=== PATIENT | male | born 1960 | race Caucasian/White ===

== ENCOUNTER → 2023-07-03 09:09 | Outpatient (REF) | payer OTHER, SELFPAY | LOC: HWRAD 09:09 | PROVIDERS: ATTENDING PHYSICIAN Physician Assistant | DX: Z87.891 Personal history of nicotine dependence (principal) | CPT/HCPCS: 71271 ==

== ENCOUNTER → 2023-08-10 10:25 | Outpatient (REF) | payer OTHER, SELFPAY ==
[2023-08-10 11:46] LABS: Lithium 0.7 mmol/L (0.6-1.2)
== END ==
LOC: REG 10:25
PROVIDERS: ATTENDING PHYSICIAN Registered Nurse Psychiatric/Mental Health, Adult
DX: Z79.899 Other long term (current) drug therapy (principal)
CPT/HCPCS: 36415; 80178

== ENCOUNTER → 2024-02-15 10:28 | Outpatient (REF) | payer OTHER, SELFPAY ==
[2024-02-15 11:31] LABS: Lithium 0.8 mmol/L (0.6-1.2)
== END ==
LOC: REG 10:28
PROVIDERS: ATTENDING PHYSICIAN Registered Nurse Psychiatric/Mental Health, Adult; FAMILY PHYSICIAN Physician Assistant
DX: Z79.899 Other long term (current) drug therapy (principal)
CPT/HCPCS: 36415; 80178